=== PATIENT | female | born 1985 | race Caucasian/White ===

== ENCOUNTER 2018-09-01 06:58 | Observation (INO) | payer SELFPAY ==
[2018-09-01] MEDS ORDERED: MORPHINE 4 MG/ML SYR ONE (07:24)
[2018-09-01] MEDS ORDERED: ONDANSETRON 4 MG/2 ML VIAL ONE (07:25)
[2018-09-01] MEDS ORDERED: NA CHLORIDE 0.9% 1,000 ML ONE ×2 (07:25→08:26)
[2018-09-01 07:50] LABS: Absolute Lymphocytes (CBC) 0.8 K/uL (0.7-4.9); Absolute Monocytes 0.6 K/uL (0.1-1.3); Absolute Neutrophil 6.4 K/uL (1.8-8.0); Basophils % 0.6 % (0-1.3); Eosinophils % 2.3 % (0-4.4); Hematocrit 44.5 % (36.0-45.0); Lymphocytes % 10.5 % (15.3-44.8); MPV 8.4 fL (7.6-11.3); Monocytes % 7.2 % (3.3-12.3); RBC Red Blood Cell Count 4.86 M/uL (3.86-4.86)
[2018-09-01 08:00] LABS: Bilirubin Direct 0.2 mg/dL (0-0.2); Bilirubin Total 0.5 mg/dL (0.2-1.0); Potassium 4.2 mmol/L (3.5-5.1); Protein, Total 7.6 g/dL (6.4-8.2)
[2018-09-01 08:01] LABS: Albumin 3.9 g/dL (3.4-5.0)
--- NOTE | 2018-09-01 09:09 | RAD REPORT ---
EXAM DESCRIPTION: CT - Abdomen Pelvis W Contrast - 09/01/2018 8:27 am CLINICAL HISTORY: Abdominal pain, nausea, vomiting and diarrhea, history of prior bowel obstruction and hernia repair COMPARISON: CT imaging September 2011 TECHNIQUE: Biphasic, helical CT imaging of the abdomen and pelvis was performed following 100 ml non -ionic IV contrast. Oral contrast was given. All CT scans are performed using dose optimization technique as appropriate and may include automated exposure control or mA/KV adjustment according to patient size. FINDINGS: No suspicious findings in the lung bases. The liver, spleen, and pancreas show no suspicious findings. Gallbladder and biliary tree are also wi thout suspicious finding. Symmetric renal function is seen with no hydronephrosis or suspicious renal mass. No pyelonephritis o r acute parenchymal process. Contracted urinary bladder shows no suspicious findings. No suspicious o varian finding. A 3.7 centimeter fundal mass has enlarged since 2011. This is most likely an incident al fibroid. No adrenal abnormalities. No gastric dilatation or wall thickening. Proximal small bowel shows no dilatation. Proximal jejunum calderon are mildly prominent. In the mid small bowel spanning distal jejunum to proximal ileum there ar e multiple clustered small bowel loops. Distal to the dilatation the ileum is decompressed. Air and s tool are present in the right-side of the colon. The clustered or matted mid abdominal small bowel lo ops have fecalized bowel content indicating stasis. No free air or pneumatosis. An obstructing mass i s not identified. Patient has hernia mesh along the deep margin of the anterior abdominal wall spanning a fat only umbi lical hernia. No new abdominal wall hernia defect. No free air, free fluid or inflammatory stranding . No mass or bulky lymphadenopathy. No suspicious bony findings. IMPRESSION: Multiple dilated small bowel loops matted or clustered in the anterior mid abdomen dionicio ing distal jejunum to proximal ileum. These have fecalized bowel content and fluid. No obstructing ma ss at the distal end of the dilated small bowel loops. Baseline bowel pattern is not known for this patient. Given the acute symptoms, patient could have ne w bowel obstruction from adhesion or internal hernia process. No free air or surgically emergent finding. A 3.7 centimeter uterine fundal mass has enlarged since 2011. Enlarging fibroid is the favored diagno sis.
[2018-09-01] MEDS ORDERED: KETOROLAC 30 MG/ML INJ ONE (09:17)
--- NOTE | 2018-09-01 09:58 | EDPHYS ---
Physician Documentation [facility] Name: Gali Wetzel Age: 33 yrs Sex: Female : 1985 Arrival Date: 09/01/2018 Time: 07:00 Bed 20 Private MD: ED Physician Gael Olson HPI: 09/01 07:28 This 33 yrs old Female presents to ER via Ambulatory with complaints of kb Abdominal Pain, Vomiting/Diarrhea. 07:28 The patient presents with abdominal pain in the upper abdomen. Onset: The kb symptoms/episode began/occurred last night. The symptoms do not radiate. Associated signs and symptoms: Pertinent positives: nausea, vomiting, and diarrhea, Pertinent negatives: anorexia, blood in stools, chest pain, constipation, dysuria, fever, headache, hematuria, palpitations, shortness of breath, vaginal discharge, vomiting blood. The symptoms are described as constant. Modifying factors: The symptoms are alleviated by nothing, the symptoms are aggravated by nothing. Severity of pain: At its worst the pain was moderate in the emergency department the pain is unchanged. The patient has experienced a previous episode, approximately 5 years ago. The patient has not recently seen a physician. Pt reports abd pain, n/v/d that started after dinner last night. Reports the pain is the same as when she had a bowel obstruction 5 years ago. . 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 - Social history:: Smoking status: Patient/guardian denies using tobacco. - Ebola Screening: : No symptoms or risks identified at this time. ROS: 07:28 Constitutional: Negative for fever, chills, and weight loss, ENT: Negative for injury, kb pain, and discharge, Neck: Negative for injury, pain, and swelling, Cardiovascular: Negative for chest pain, palpitations, and edema, Respiratory: Negative for shortness of breath, cough, wheezing, and pleuritic chest pain, : Negative for injury, bleeding, discharge, and swelling, MS/Extremity: Negative for injury and deformity, Skin: Negative for injury, rash, and discoloration, Neuro: Negative for headache, weakness, numbness, tingling, and seizure. 07:28 Abdomen/GI: Positive for abdominal pain, nausea, vomiting, and diarrhea, Negative for constipation, abdominal cramps, abdominal distension, anorexia. Exam: 07:28 Constitutional: This is a well developed, well nourished patient who is awake, alert, kb and in no acute distress. Head/Face: Normocephalic, atraumatic. ENT: Nares patent. No nasal discharge, no septal abnormalities noted. Tympanic membranes are normal and external auditory canals are clear. Oropharynx with no redness, swelling, or masses, exudates, or evidence of obstruction, uvula midline. Mucous membranes moist. Neck: Trachea midline, no thyromegaly or masses palpated, and no cervical lymphadenopathy. Supple, full range of motion without nuchal rigidity, or vertebral point tenderness. No Meningismus. Chest/axilla: Normal chest wall appearance and motion. Nontender with no deformity. No lesions are appreciated. Cardiovascular: Regular rate and rhythm with a normal S1 and S2. No gallops, murmurs, or rubs. Normal PMI, no JVD. No pulse deficits. Respiratory: Lungs have equal breath sounds bilaterally, clear to auscultation and percussion. No rales, rhonchi or wheezes noted. No increased work of breathing, no retractions or nasal flaring. Skin: Warm, dry with normal turgor. Normal color with no rashes, no lesions, and no evidence of cellulitis. MS/ Extremity: Pulses equal, no cyanosis. Neurovascular intact. Full, normal range of motion. Neuro: Awake and alert, GCS 15, oriented to person, place, time, and situation. Cranial nerves II-XII grossly intact. Motor strength 5/5 in all extremities. Sensory grossly intact. Cerebellar exam normal. Normal gait. 07:28 Abdomen/GI: Inspection: abdomen appears normal, Bowel sounds: normal, in all quadrants, Palpation: soft, in all quadrants, mild abdominal tenderness, in all quadrants. Vital Signs: 07:08 BP 106 / 74; Pulse 86; Resp 16; Temp 97.9(O); Pulse Ox 100% on R/A; Weight 95.25 kg; hb Height 5 ft. 4 in. (162.56 cm); Pain 5/10; 08:00 BP 98 / 64; Pulse 58; Resp 18; Pulse Ox 99% on R/A; Pain 3/10; em 09:00 BP 100 / 53; Pulse 54; Resp 16; Pulse Ox 100% on R/A; Pain 6/10; em 09:50 BP 105 / 55; Pulse 72; Resp 18; Pulse Ox 99% on R/A; Pain 0/10; em 07:08 Body Mass Index 36.05 (95.25 kg, 162.56 cm) hb MDM: 07:04 Patient medically screened. kb 07:33 Data reviewed: vital signs, nurses notes. Data interpreted: Pulse oximetry: on room air kb is 100 %. Interpretation: normal. 09:32 Counseling: I had a detailed discussion with the patient and/or guardian regarding: the kb historical points, exam findings, and any diagnostic results supporting the discharge/admit diagnosis, lab results, radiology results, the need for further work-up and treatment in the hospital. 09:39 Physician consultation: Eber Adams DO was contacted at 09:39, regarding admission, kb to the medical/surgical unit. patient's condition, and will see patient in ED, shortly. 09/01 07:10 Order name: Basic Metabolic Panel; Complete Time: 08:01 kb 09/01 07:10 Order name: CBC with Diff; Complete Time: 07:56 kb 09/01 07:10 Order name: Hepatic Function; Complete Time: 08:01 kb 09/01 07:10 Order name: Lipase; Complete Time: 08:01 kb 09/01 08:18 Order name: Urine Dipstick--Ancillary (enter results); Complete Time: 11:57 eb 09/01 08:18 Order name: Urine --Ancillary (enter results); Complete Time: 11:57 eb 09/01 07:10 Order name: IV Saline Lock; Complete Time: 07:28 kb 09/01 07:10 Order name: CT Abd/Pelvis - W/Contrast; Complete Time: 09:10 kb 09/01 07:10 Order name: Labs collected and sent; Complete Time: 07:28 kb 09/01 07:10 Order name: Urine Dipstick-Ancillary (obtain specimen); Complete Time: 08:17 kb Administered Medications: 07:20 Drug: NS 0.9% 1000 ml Route: IV; Rate: 1000 ml; Site: right antecubital; em 08:18 Follow up: IV Status: Completed infusion; IV Intake: 1000ml em 07:20 Drug: Zofran 4 mg Route: IVP; Site: right antecubital; hb 08:17 Follow up: Response: No adverse reaction; Nausea is decreased em 07:22 Drug: morphine 4 mg Route: IVP; Site: right antecubital; hb 08:18 Follow up: Response: No adverse reaction; Pain is decreased em 08:33 Drug: NS 0.9% 1000 ml Route: IV; Rate: 1000 ml; Site: right antecubital; em 11:50 Follow up: IV Status: Completed infusion; IV Intake: 1000ml em 09:09 Drug: TORadol 30 mg Route: IVP; Site: right antecubital; hb 09:50 Follow up: Response: No adverse reaction; Pain is decreased em Disposition: 15:15 Co-signature as Attending Physician, Gael Olson MD. rn Disposition: 09/01/18 09:57 Hospitalization ordered by Eber Adams for Observation. Preliminary diagnosis is Generalized abdominal pain. - Bed requested for Telemetry/MedSurg (observation). - Status is Observation. em - Condition is Stable. - Problem is new. - Symptoms are unchanged. UTI on Admission? No Signatures: Dispatcher [employer] EDMT Jagruti Handley, MEDICAL STAFFING COORDINATOR-C MEDICAL STAFFING COORDINATOR-Ckb Chaitanya Acuña, LEAD PRESSMAN LEAD PRESSMAN em Gael Olson MD MD rn Baxter, Heather, RN RN hb Botello, Elizabeth eb Corrections: (The following items were deleted from the chart) 09:45 09:18 Abdomen Pelvis W Con+CT.RAD.BRZ ordered. EDMT EDMS 10:24 09:38 NG Tube ordered. kb em 11:40 09:57 Hospitalization Ordered by Eber Adams DO for Observation. Preliminary eb diagnosis is Generalized abdominal pain. Bed requested for Telemetry/MedSurg (observation). Status is Observation. Condition is Stable. Problem is new. Symptoms are unchanged. UTI on Admission? No. kb 12:20 11:40 09/01/2018 09:57 Hospitalization Ordered by Eber Adams DO for Observation. em Preliminary diagnosis is Generalized abdominal pain. Bed requested for Telemetry/MedSurg (observation). Status is Observation. Condition is Stable. Problem is new. Symptoms are unchanged. UTI on Admission? No. eb
--- NOTE | 2018-09-01 09:58 | ER ---
Nurse's Notes [facility] Name: Gali Wetzel Age: 33 yrs Sex: Female : 1985 Arrival Date: 09/01/2018 Time: 07:00 Bed 20 Private MD: Diagnosis: Generalized abdominal pain Presentation: 09/01 07:09 Presenting complaint: N/V/D x 2 days, abdominal pain after eating dinner last night. hb Transition of care: patient was not received from another setting of care. Onset of symptoms was August 30, 2018. Risk Assessment: Do you want to hurt yourself or someone else? Patient reports no desire to harm self or others. Initial Sepsis Screen: Does the patient meet any 2 criteria? No. Patient's initial sepsis screen is negative. Does the patient have a suspected source of infection? No. Patient's initial sepsis screen is negative. Care prior to arrival: None. 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 - Social history:: Smoking status: Patient/guardian denies using tobacco. - Ebola Screening: : No symptoms or risks identified at this time. Screenin:15 Abuse screen: Denies threats or abuse. Denies injuries from another. Nutritional hb screening: No deficits noted. Tuberculosis screening: No symptoms or risk factors identified. Fall Risk None identified. Assessment: 07:12 General: Appears in no apparent distress. uncomfortable, Behavior is calm, cooperative, em Denies fever. Pain: Complains of pain in right upper quadrant and left upper quadrant Pain currently is 7 out of 10 on a pain scale. Pain began 1 day ago. Aggravated by eating. Neuro: Level of Consciousness is awake, alert, obeys commands, Oriented to person, place, time, situation. Cardiovascular: Capillary refill < 3 seconds Patient's skin is warm and dry. Respiratory: Airway is patent Respiratory effort is even, unlabored, Respiratory pattern is regular, symmetrical. GI: Abdomen is flat, Bowel sounds present X 4 quads. Abd is soft X 4 quads Abdomen is tender to palpation in right upper quadrant and left upper quadrant Reports upper abdominal pain, diarrhea, nausea, vomiting. : Denies burning with urination, cramping. Derm: Skin is intact, is healthy with good turgor, Skin is pink, warm \T\ dry. Musculoskeletal: Range of motion: intact in all extremities. 07:20 Reassessment: I agree with previous assessment. hb 08:00 Reassessment: Patient appears in no apparent distress at this time. Patient and/or em family updated on plan of care and expected duration. Pain level reassessed. Patient is alert, oriented x 3, equal unlabored respirations, skin warm/dry/pink. rates pain 3/10. 08:32 Reassessment: Patient appears in no apparent distress at this time. returned from CT, em placed on monitor and started 2nd NS L. 09:00 Reassessment: Patient appears in no apparent distress at this time. reports pain is em coming back, rates 6/10, provider at bedside, new medication orders received. 10:01 Reassessment: Patient appears in no apparent distress at this time. denies pain at this em time, Dr. Adams at bedside. 10:15 Reassessment: NG tube canceled per Dr. Adams until further notice. em 11:10 Reassessment: Patient appears in no apparent distress at this time. Patient and/or em family updated on plan of care and expected duration. Pain level reassessed. Patient is alert, oriented x 3, equal unlabored respirations, skin warm/dry/pink. pending room assignment Patient denies pain at this time. Patient states feeling better. 12:17 Reassessment: Patient appears in no apparent distress at this time. Patient and/or em family updated on plan of care and expected duration. Pain level reassessed. Patient is alert, oriented x 3, equal unlabored respirations, skin warm/dry/pink. Vital Signs: 07:08 BP 106 / 74; Pulse 86; Resp 16; Temp 97.9(O); Pulse Ox 100% on R/A; Weight 95.25 kg; hb Height 5 ft. 4 in. (162.56 cm); Pain 5/10; 08:00 BP 98 / 64; Pulse 58; Resp 18; Pulse Ox 99% on R/A; Pain 3/10; em 09:00 BP 100 / 53; Pulse 54; Resp 16; Pulse Ox 100% on R/A; Pain 6/10; em 09:50 BP 105 / 55; Pulse 72; Resp 18; Pulse Ox 99% on R/A; Pain 0/10; em 07:08 Body Mass Index 36.05 (95.25 kg, 162.56 cm) hb ED Course: 07:00 Patient arrived in ED. as 07:01 Jagruti Handley FNP-C is PHCP. kb 07:01 Gael Olson MD is Attending Physician. kb 07:12 Patient has correct armband on for positive identification. Placed in gown. Bed in low em position. Call light in reach. Side rails up X2. Pulse ox on. NIBP on. 07:13 Chaitanya Acuña LVN is Primary Nurse. em 07:13 Triage completed. hb 07:13 Arm band placed on. hb 07:20 Initial lab(s) drawn, by me, sent to lab. Inserted saline lock: 20 gauge in right em antecubital area, using aseptic technique. Blood collected. 08:24 CT completed. Patient moved to CT via wheelchair. Patient moved back from CT. bq 08:27 CT Abd/Pelvis - W/Contrast In Process Unspecified. EDMS 09:56 Eber Adams DO is Hospitalizing Provider. kb 11:50 No provider procedures requiring assistance completed. Patient admitted, IV remains in em place. Administered Medications: 07:20 Drug: NS 0.9% 1000 ml Route: IV; Rate: 1000 ml; Site: right antecubital; em 08:18 Follow up: IV Status: Completed infusion; IV Intake: 1000ml em 07:20 Drug: Zofran 4 mg Route: IVP; Site: right antecubital; hb 08:17 Follow up: Response: No adverse reaction; Nausea is decreased em 07:22 Drug: morphine 4 mg Route: IVP; Site: right antecubital; hb 08:18 Follow up: Response: No adverse reaction; Pain is decreased em 08:33 Drug: NS 0.9% 1000 ml Route: IV; Rate: 1000 ml; Site: right antecubital; em 11:50 Follow up: IV Status: Completed infusion; IV Intake: 1000ml em 09:09 Drug: TORadol 30 mg Route: IVP; Site: right antecubital; hb 09:50 Follow up: Response: No adverse reaction; Pain is decreased em Intake: 08:18 IV: 1000ml; Total: 1000ml. em 11:50 IV: 1000ml; Total: 2000ml. em Outcome: 09:57 Decision to Hospitalize by Provider. kb 12:18 Admitted to Med/surg accompanied by tech, via wheelchair, room 213, with chart, Report em called to CHANDNI Smith 12:18 Condition: good 12:18 Instructed on the need for admit, Demonstrated understanding of instructions. 12:20 Patient left the ED. em Signatures: Dispatcher [employer] EDJagruti Sy, DEVELOPER PROVER MECHANICAL-C DEVELOPER PROVER MECHANICAL-Renu Mcguire Edgar, TONNAGE COMPILATION CLERK TONNAGE COMPILATION CLERK em Amy Trevino Heather, RN RN hb
--- NOTE | 2018-09-01 10:18 | P.HP ---
Certification for Inpatient Patient admitted to: Observation With expected LOS: <2 Midnights Patient will require the following post-hospital care: None Practitioner: I am a practitioner with admitting privileges, knowledge of patient current condition, hospital course, and medical plan of care. Services: Services provided to patient in accordance with Admission requirements found in Title 42 Section 412.3 of the Code of Federal Regulations Patient History Date of Service: 09/01/18 Primary Care Provider: Dr. Meyer; Surgery-Dr. Davis Reason for admission: Abdominal pain, nausea vomiting History of Present Illness: 33-year-old female presented to emergency room with kai umbilical abdominal pain, nausea and vomiting. Patient reports kai umbilical abdominal pain, nausea and vomiting starting last night. Pain has worsened. Patient with history of partial small bowel obstruction about 4 years ago. This required hospitalization. Patient also with history of hernia repair in the distant past along with a D/C. Pain was severe. Patient had poor oral intake. Patient reports eating some broccoli and foot he is over the last couple of days. In the ER patient was evaluated. Patient given pain medication and IV medication for nausea. White count 8.0, hemoglobin 14,creatinine 0.99 with a GFR 64. Lipase unremarkable. CT scan with oral contrast showed multiple dilated small bowel loops in the anterior mid abdomen near distal jejunum to proximal ileum. No obstructing mass at the distal and of the dilated loops. No free air or surgically emergent finding. 3.7 cm uterine fundal mass has enlarged since 2011. Likely an large fibroid. Patient stable at this time. Patient admitted for further evaluation and treatment. When I saw the patient the ER, she appeared comfortable. Abdomen non distended. Patient with history of depression, tobacco use and chronic allergies. Allergies Penicillins Allergy (Unknown, Verified 09/11/11 06:11) Hives Home medications list reviewed: Yes Home Medications: Phenergan 12.5 PO Q4HP PRN 09/11/11 Hydrocodone 5/325 1 mg PO Q4HP PRN 09/12/11 Hydroxycut 1 PO TID 09/12/11 - Past Medical/Surgical History Diabetic: No -: Depression -: Chronic sinusitis -: Tobacco use -: Hernia repair -: D/C Psychosocial/ Personal History: Patient is . She has 3 children. She works at the [employer]. - Family History Family History: Reviewed- Non-Contributory - Social History Smoking Status: Light Tobacco smoker (1-9 cigarettes/day) Counseled patient to stop smoking for: less than 10 minutes Smoking therapy provided: Yes Patient receptive to therapy: Yes Alcohol use: Yes CD- Drugs: No Caffeine use: Yes Place of Residence: Home Review of Systems General: As per HPI Eyes: Unremarkable ENT: Unremarkable Respiratory: Unremarkable Cardiovascular: Unremarkable Gastrointestinal: Nausea, Vomiting, Abdominal Pain, As per HPI Genitourinary: Unremarkable Musculoskeletal: Unremarkable Integumentary: Unremarkable Neurological: Unremarkable Lymphatics: Unremarkable Physical Examination - Physical Exam General: Alert, In no apparent distress, Oriented x3, Cooperative HEENT: Atraumatic, Normocephalic, PERRLA, Other (Dry mucous membranes) Neck: Supple, No Thyromegaly Respiratory: Clear to auscultation bilaterally, Normal air movement Cardiovascular: Normal pulses, Regular rate/rhythm Gastrointestinal: Soft and benign, Non-distended, No rebound, No guarding, Tenderness (Minimal tenderness to the epigastric and periumbilical region. Slightly hypoactive bowel sounds) Musculoskeletal: No erythema, No tenderness, No warmth Integumentary: No tenderness/swelling, No erythema, No warmth, No cyanosis Neurological: Normal speech, Normal strength at 5/5 x4 extr, Normal tone, Normal affect - Studies Laboratory Data (last 24 hrs) 09/01/18 07:20: WBC 8.0, Hgb 14.5, Hct 44.5, Plt Count 339 09/01/18 07:20: Sodium 140, Potassium 4.2, BUN 13, Creatinine 0.99, Glucose 108 H, Total Bilirubin 0.5, AST 14 L, ALT 14, Alkaline Phosphatase 44 L, Lipase 68 L Assessment and Plan - Plan Impression: Periumbilical abdominal pain with nausea and vomiting suspect partial small- bowel obstruction versus enteritis with history of small-bowel obstruction and hernia repair Depression Chronic sinusitis Obesity Tobacco abuse Plan: Periumbilical abdominal pain with nausea and vomiting suspect partial small- bowel obstruction versus enteritis with history of small-bowel obstruction and hernia repair: Patient will be admitted and observed. Will continue with IV fluids and medication for pain and nausea. Will discuss case further with surgery who has seen the patient in the past. No need for NG tube at this time. Will keep the patient NPO. Await further recommendations from surgery. Hopefully this will resolve on its own. If worse patient may require surgical intervention. Depression: Will hold medication at this time. Chronic sinusitis: Hold medication at this time. Obesity: Will address lifestyle modification education. Tobacco abuse: Will address tobacco cessation. Discharge Plan: Home Plan to discharge in: 48 Hours - Advance Directives Does patient have a Living Will: No Does patient have a Durable POA for Healthcare: No - Code Status/Comfort Care Code Status Assessed: Yes (Patient full code.) Time Spent Managing Pts Care (In Minutes): 55
[2018-09-01 11:55] LABS: Urine Blood TRACE (NEG); Urine Glucose NEGATIVE (NEG); Urine Protein TRACE (NEG)
[2018-09-01] MEDS ORDERED: ACETAMINOPHEN 650MG/RECT SUPP PR PRN (12:44)
[2018-09-01] MEDS ORDERED: ACETAMINOPHEN 500 MG TAB PO PRN (12:44)
[2018-09-01] MEDS: NA CHLORIDE 0.9% 1,000 ML IV SCH ×3 (14:39→22:44)
[2018-09-01] MEDS: FAMOTIDINE 20 MG/2 ML VIAL IV SCH ×2 (14:42→20:40)
[2018-09-01] MEDS: ONDANSETRON 4 MG/2 ML VIAL IV PRN ×2 (14:43→20:39)
[2018-09-01] MEDS: MORPHINE 4 MG/ML SYR IV PRN ×2 (14:43→20:39)
[2018-09-01] MEDS ORDERED: MINERAL OIL 30 ML UCUP PO ONE (18:23)
--- NOTE | 2018-09-01 18:23 | P.CNS ---
Date of Consult: 09/01/18 PC: This 33-year-old female presents to the emergency room with severe abdominal pain for diagnosis and treatment. HPC: Patient had been cooking at home this week. Has had steak and broccoli, Fajita meet , and a stir joyce. Yesterday she noted she was having increased abdominal pain. She describes it as hard like labor pain. In intensified and so she could no longer stand it and she came to the emergency room. PMH: Negative, (has had admissions for partial small-bowel obstruction in the past) PSHx: Previous hernia repair SOC: Allergic to penicillin SYS REVIEW: States he has otherwise been healthy. She would had started a new diet in an effort to lose weight during the new year. It is supposedly high- protein high-fiber. protein high fiber. O/E awake alert comfortable at the moment HEENT: Within normal limits Chest: Chest movement equal bilaterally ABD: Abdomen soft nontender no guarding or rebound LOCO: Intact DATA: CT scan was reviewed IMPRESSION: Partial small-bowel obstruction PLAN: I suspect that this young lady, due to her over indulgence in the high- fiber department, had a partial small-bowel obstruction. This can be seen on the CT scan as the l fecalized contents of the small bowel. At the current time I would imagine that he has broken up as the patient is extremely comfortable in the bed. I will order some mineral oil for her tonight, and imagine that by the morning she should be much improved if not stable enough for discharge. I have discussed this with her. She understands
[2018-09-02 06:12] LABS: Absolute Lymphocytes (CBC) 1.3 K/uL (0.7-4.9); Absolute Monocytes 0.5 K/uL (0.1-1.3); Absolute Neutrophil 4.9 K/uL (1.8-8.0); Basophils % 0.4 % (0-1.3); Hematocrit 37.5 % (36.0-45.0); Lymphocytes % 19.2 % (15.3-44.8); MPV 8.7 fL (7.6-11.3); Monocytes % 6.7 % (3.3-12.3); RBC Red Blood Cell Count 4.08 M/uL (3.86-4.86)
[2018-09-02 06:23] LABS: Potassium 3.8 mmol/L (3.5-5.1)
[2018-09-02 06:42] VITALS: BMI 37.0
[2018-09-02] MEDS ORDERED: D50W 25 GM/50 ML SYRINGE IV ONE (07:35)
[2018-09-02] MEDS: D5 0.45 NS 1,000 ML IV SCH ×2 (07:44→17:36)
[2018-09-02] MEDS ORDERED: KCL 20 MEQ/100 mL IVPB 20 MEQ/100 ML BAG IV SCH (09:00)
[2018-09-02] MEDS: ENOXAPARIN 40 MG/0.4 ML SQ SCH (09:18)
[2018-09-02] MEDS: FAMOTIDINE 20 MG/2 ML VIAL IV SCH ×2 (09:18→20:16)
--- NOTE | 2018-09-02 12:47 | RAD REPORT ---
EXAM DESCRIPTION: RAD - Abdomen 1 View (KUB) - 09/02/2018 12:19 pm CLINICAL HISTORY: Abdomen pain. FINDINGS: A ventral mesh overlies the abdomen. It is difficult to assess the small bowel dilatation seen on the recent CAT scan as the small bowel i s mostly fluid-filled containing little air. Air is visualized within normal caliber colon.
--- NOTE | 2018-09-02 13:01 | P.PN ---
Subjective Date of Service: 09/02/18 Primary Care Provider: Dr. Meyer; Surgery-Dr. Davis Chief Complaint: Abdominal pain, nausea vomiting Subjective: Other (Patient has not had a bowel movement. Some passage of gas is noted. Pain slightly improved.) Physical Examination - Vital Signs Temperature: 98.4 F Blood Pressure: 107/56 Pulse: 59 Respirations: 18 Pulse Ox (%): 98 - Physical Exam General: Alert, In no apparent distress, Oriented x3, Cooperative HEENT: Atraumatic Neck: Supple Respiratory: Clear to auscultation bilaterally, Normal air movement Cardiovascular: Normal pulses, Regular rate/rhythm Gastrointestinal: Normal bowel sounds, Soft and benign, Non-distended, Tenderness (Less pain to the periumbilical region) Neurological: Normal speech, Normal strength at 5/5 x4 extr, Normal tone, Normal affect - Studies Medications List Reviewed: Yes Assessment & Plan Discharge Plan: Home Plan to discharge in: 48 Hours Physician Review Additional Text: Impression: Periumbilical abdominal pain with nausea and vomiting suspect partial small- bowel obstruction versus enteritis with history of small-bowel obstruction and hernia repair Depression Chronic sinusitis Obesity, BMI 37 Tobacco abuse 3.7 cm uterine fibroid Plan: Periumbilical abdominal pain with nausea and vomiting suspect partial small- bowel obstruction versus enteritis with history of small-bowel obstruction and hernia repair: Patient with slight improvement. Continue IV fluids. Encourage ambulation. Will have surgery assess the patient today. If improved patient will likely have advanced of her diet. If this persists patient may require surgical intervention. Will discuss with surgery. I will turn the service over to Dr. Watson tomorrow. I will go over the plan of care with her. Depression: Will hold medication at this time. Chronic sinusitis: Hold medication at this time. Obesity, BMI 37: Will address lifestyle modification education. Tobacco abuse: Will address tobacco cessation. 3.7 cm Uterine fibroid: CT scan revealed 3.7 cm uterine fibroid. This has enlarged since 2012. This can be further addressed as an outpatient with gynecology. Time Spent Managing Pts Care (In Minutes): 55
[2018-09-02] MEDS: MORPHINE 4 MG/ML SYR IV PRN (13:05)
--- NOTE | 2018-09-02 19:27 | P.PN ---
Date of Service: 09/02/18 S: Patient of specific complaints, states she feels better today. Has been started on liquids and appears to be tolerating it. O: Abdomen soft, nontender, no guarding or rebound A: Partial small-bowel obstruction/ileus appears to have resolve P: I will give her some magnesium citrate tonight. Anticipate discharge in a.m..
[2018-09-02] MEDS ORDERED: MAGNESIUM CITRATE 300 ML BOT PO SCH (20:00)
[2018-09-03] MEDS: D5 0.45 NS 1,000 ML IV SCH (03:30)
[2018-09-03 07:04] LABS: Magnesium 2.1 mg/dL (1.8-2.4); Potassium 3.9 mmol/L (3.5-5.1)
[2018-09-03 07:13] LABS: Absolute Lymphocytes (CBC) 1.1 K/uL (0.7-4.9); Absolute Monocytes 0.5 K/uL (0.1-1.3); Absolute Neutrophil 2.6 K/uL (1.8-8.0); Basophils % 0.5 % (0-1.3); Eosinophils % 4.7 % (0-4.4); Lymphocytes % 25.4 % (15.3-44.8); MPV 8.6 fL (7.6-11.3); Monocytes % 11.3 % (3.3-12.3); RBC Red Blood Cell Count 3.92 M/uL (3.86-4.86)
[2018-09-03] MEDS ORDERED: POTASSIUM CL SA 10 MEQ TAB PO ONE (07:23)
[2018-09-03] MEDS ORDERED: MONTELUKAST 10 MG TAB PO SCH (09:00)
[2018-09-03] MEDS ORDERED: BUSPIRONE HCL 5 MG TABLET PO SCH (09:00)
[2018-09-03] MEDS ORDERED: MONTELUKAST 5 MG PO SCH (09:00)
[2018-09-03] MEDS: FAMOTIDINE 20 MG/2 ML VIAL IV SCH (09:56)
[2018-09-03] MEDS: ENOXAPARIN 40 MG/0.4 ML SQ SCH (09:57)
[2018-09-03 11:44] VITALS: O2SAT 99
[2018-09-03 12:34] VITALS: BP 107/67; TEMP 97.7
--- NOTE | 2018-09-03 13:07 | P.PN ---
Date of Service: 09/03/18 S: Patient is doing well pain appears to have resolved. Tolerating a diet. Having regular bowel movements. O: Abdomen is soft nontender no guarding or rebound A: Her GI issue appears to have resolved P . She has been instructed on follow-up as needed.
--- NOTE | 2018-09-03 17:51 | P.DS ---
Admission Date: 09/01/18 Discharge Date: 09/03/18 Primary Care Provider: Dr. Meyer; Surgery-Dr. Davis Disposition: ROUTINE DISCHARGE Discharge Condition: GOOD Reason for Admission: Abdominal pain, nausea vomiting Consultations: General Surgery - Problems (1) Depression Onset Date: 09/03/18 Status: Acute (2) Nausea & vomiting Onset Date: 09/03/18 Status: Acute (3) Periumbilical abdominal pain Onset Date: 09/03/18 Status: Acute Brief History of Present Illness: 3-year-old female presented to emergency room with kai umbilical abdominal pain, nausea and vomiting. Patient reports kai umbilical abdominal pain, nausea and vomiting starting last night. Pain has worsened. Patient with history of partial small bowel obstruction about 4 years ago. This required hospitalization. Patient also with history of hernia repair in the distant past along with a D/C. Pain was severe. Patient had poor oral intake. Patient reports eating some broccoli and foot he is over the last couple of days. In the ER patient was evaluated. Patient given pain medication and IV medication for nausea. White count 8.0, hemoglobin 14,creatinine 0.99 with a GFR 64. Lipase unremarkable. CT scan with oral contrast showed multiple dilated small bowel loops in the anterior mid abdomen near distal jejunum to proximal ileum. No obstructing mass at the distal and of the dilated loops. No free air or surgically emergent finding. 3.7 cm uterine fundal mass has enlarged since 2011. Likely an large fibroid. Patient stable at this time. Patient admitted for further evaluation and treatment. When I saw the patient the ER, she appeared comfortable. Abdomen non distended. Patient with history of depression, tobacco use and chronic allergies Hospital Course: Overall during the hospital stay patient remained stable Patient was initially admitted to the hospital for abdominal pain nausea vomiting. Had abdominal CT which was consistent with stool retention. General surgery was consulted and recommended the patient get back sutured. Patient had a huge bowel movement and had improvement in her symptoms. Patient's abdominal pain nausea vomiting did resolve completely. Patient then was discharged home under stable condition was asked to follow up with primary care provider in about 1-2 days post discharge. Vital Signs/Physical Exam: Temp Pulse Resp BP Pulse Ox 97.7 F 56 16 107/67 99 09/03/18 12:00 09/03/18 12:00 09/03/18 12:00 09/03/18 12:00 09/03/18 12:00 Laboratory Data at Discharge: WBC 4.5 K/uL (4.3-10.9) D 09/03/18 06:14 Hgb 11.9 g/dL (12.0-15.0) L 09/03/18 06:14 Hct 36.0 % (36.0-45.0) 09/03/18 06:14 Plt Count 241 K/uL (152-406) 09/03/18 06:14 Sodium 143 mmol/L (136-145) 09/03/18 06:14 Potassium 3.9 mmol/L (3.5-5.1) 09/03/18 06:14 BUN 7 mg/dL (7-18) 09/03/18 06:14 Creatinine 0.86 mg/dL (0.55-1.3) 09/03/18 06:14 Glucose 97 mg/dL (74-106) 09/03/18 06:14 Magnesium 2.1 mg/dL (1.8-2.4) 09/03/18 06:14 Total Bilirubin 0.5 mg/dL (0.2-1.0) 09/01/18 07:20 AST 14 U/L (15-37) L 09/01/18 07:20 ALT 14 U/L (12-78) 09/01/18 07:20 Alkaline Phosphatase 44 U/L (45-117) L 09/01/18 07:20 Lipase 68 U/L (73-393) L 09/01/18 07:20 Home Medications: Buspirone HCl 5 mg PO DAILY 09/01/18 Montelukast [Singulair*] 5 mg PO DAILY 09/01/18 Diet: Regular Activity: Ad mya Followup: David Nicholas MD [ACTIVE - CAN ADMIT] - (Call to schedule an appointment) Norm Davis MD [ACTIVE - CAN ADMIT] - (Call to schedule an appointment)
== END 2018-09-03 13:45 | disposition home or self-care (01) ==
LOC: ER 06:58 → ERHOLD 10:11 → 4TH 12:23
PROVIDERS: ADMIT Family Medicine; ATTEND Family Medicine
DX: R11.2 Nausea with vomiting, unspecified (principal); R10.9 Unspecified abdominal pain; F32.9 Major depressive disorder, single episode, unspecified; E66.9 Obesity, unspecified; Z68.37 Body mass index [BMI] 37.0-37.9, adult; D25.9 Leiomyoma of uterus, unspecified; Z88.0 Allergy status to penicillin; F17.210 Nicotine dependence, cigarettes, uncomplicated; J32.9 Chronic sinusitis, unspecified
CPT/HCPCS: 36415; 74018; 74177; 80048; 80076; 81003; 81025; 82962; 83690; 83735; 85025; 96361; 96374; 96375; 99285; G0378; J1650; J2405; J7030; Q9967

== ENCOUNTER 2019-01-16 13:52 | Emergency (ER) | payer BC ==
[2019-01-16] MEDS ORDERED: LIDOCAINE 1% MPF 5 ML VIAL ONE (14:40)
--- NOTE | 2019-01-16 15:03 | ER ---
Nurse's Notes [facility] Name: Gali Wetzel Age: 33 yrs Sex: Female : 1985 Arrival Date: 01/16/2019 Time: 13:55 Bed 19 Private MD: Diagnosis: Hand Laceration Presentation: 01/16 13:58 Presenting complaint: Patient states: i was washing dishes and i slashed my R thumb hj area with a glass; happened 20 mins ago;. Transition of care: patient was not received from another setting of care. Complicating Factors: There are no complicating factors for this patient. Onset of symptoms was January 16, 2019. Risk Assessment: Do you want to hurt yourself or someone else? Patient reports no desire to harm self or others. Initial Sepsis Screen: Does the patient meet any 2 criteria? No. Patient's initial sepsis screen is negative. Does the patient have a suspected source of infection? No. Patient's initial sepsis screen is negative. Care prior to arrival: None. 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 - Social history:: Smoking status: . - Ebola Screening: : Patient denies travel to an Ebola-affected area in the 21 days before illness onset. Screenin:32 Abuse screen: Denies threats or abuse. Nutritional screening: No deficits noted. tw2 Tuberculosis screening: No symptoms or risk factors identified. Fall Risk None identified. Assessment: 14:32 General: Appears in no apparent distress. obese, Behavior is calm, cooperative, tw2 appropriate for age. Pain:. 14:33 Pain: Complains of pain in dorsal aspect of proximal phalanx of right thumb and palmar tw2 aspect of proximal phalanx of right thumb. Neuro: Level of Consciousness is awake, alert, obeys commands, Oriented to person, place, time, situation. Cardiovascular: Patient's skin is warm and dry. Respiratory: Airway is patent Respiratory effort is even, unlabored, Respiratory pattern is regular, symmetrical. GI: No signs and/or symptoms were reported involving the gastrointestinal system. : No signs and/or symptoms were reported regarding the genitourinary system. Derm: No signs and/or symptoms reported regarding the dermatologic system. Musculoskeletal: Circulation, motion, and sensation intact. Range of motion: intact in all extremities. Injury Description: Laceration sustained to dorsal aspect of proximal phalanx of right thumb and palmar aspect of proximal phalanx of right thumb is clean, 0.5 to 2.5 cm long, not bleeding. 15:12 Reassessment: Patient appears in no apparent distress at this time. No changes from tw2 previously documented assessment. Patient and/or family updated on plan of care and expected duration. Pain level reassessed. Patient is alert, oriented x 3, equal unlabored respirations, skin warm/dry/pink. Vital Signs: 13:59 BP 118 / 72; Pulse 80; Resp 18; Temp 99.4; Pulse Ox 97% on R/A; Weight 97.52 kg; Height hj 5 ft. 4 in. (162.56 cm); Pain 7/10; 13:59 Body Mass Index 36.90 (97.52 kg, 162.56 cm) ED Course: 13:55 Patient arrived in ED. mr 13:58 Triage completed. hj 13:59 Arm band placed on left wrist. hj 14:01 [facility] 14:01 Can Gordon MD is Attending Physician. [facility] 14:08 Bed in low position. Call light in reach. Pulse ox on. NIBP on. tw2 14:23 Keri Islas, CHANDNI is Primary Nurse. tw2 15:12 No provider procedures requiring assistance completed. Patient did not have IV access tw2 during this emergency room visit. Administered Medications: 04:39 Drug: Lidocaine (1 %) 5 mg Route: Infiltration; tw2 Outcome: 15:02 Discharge ordered by . [facility] 15:12 Discharged to home ambulatory, with family. tw2 15:12 Condition: stable 15:12 Discharge instructions given to patient, family, Instructed on discharge instructions, follow up and referral plans. wound care, suture removal in 7 days, s/s infection Demonstrated understanding of instructions, follow-up care, wound care. 15:12 Patient left the ED. tw2 Signatures: Vish Grant PA PA jmm Rivera Dasha mr Yazan Garcia RN RN Keri Islas RN RN tw2
--- NOTE | 2019-01-16 15:03 | EDPHYS ---
Physician Documentation [facility] Name: Gali Wetzel Age: 33 yrs Sex: Female : 1985 Arrival Date: 01/16/2019 Time: 13:55 Bed 19 Private MD: ED Physician Can Gordon HPI: 01/16 14:09 This 33 yrs old Female presents to ER via Ambulatory with complaints of jmm Laceration To Hand. 14:09 Onset: The symptoms/episode began/occurred acutely, just prior to arrival. Associated jmm signs and symptoms: Pertinent negatives: dizziness, heavy bleeding, loss of consciousness, numbness distal to injury, suspected foreign body. Patient lacerated her right hand after a glass broke while washing it in the sink. Patient states she is UTD on tetanus immunizations. . 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 - Social history:: Smoking status: . - Ebola Screening: : Patient denies travel to an Ebola-affected area in the 21 days before illness onset. ROS: 14:36 Constitutional: Negative for fever, chills, and weight loss, Cardiovascular: Negative jmm for chest pain, palpitations, and edema, Respiratory: Negative for shortness of breath, cough, wheezing, and pleuritic chest pain. 14:36 MS/extremity: Positive for laceration. 14:36 Skin: Positive for laceration(s). 14:36 All other systems are negative. Exam: 14:36 Constitutional: This is a well developed, well nourished patient who is awake, alert, jmm and in no acute distress. Head/Face: atraumatic. Eyes: EOMI, no conjunctival erythema appreciated ENT: Moist Mucus Membranes Neck: Trachea midline, Supple Chest/axilla: Normal chest wall appearance and motion. Cardiovascular: Regular rate and rhythm. No edema appreciated Respiratory: Normal respirations, no respiratory distress appreciated Abdomen/GI: Non distended, soft Back: Normal ROM 14:36 Skin: partial avulsion noted to the base of the right thumb. 14:36 Neuro: Orientation: is normal, Mentation: is normal, Memory: is normal. 14:36 Psych: Behavior/mood is pleasant, cooperative. Vital Signs: 13:59 BP 118 / 72; Pulse 80; Resp 18; Temp 99.4; Pulse Ox 97% on R/A; Weight 97.52 kg; Height hj 5 ft. 4 in. (162.56 cm); Pain 7/10; 13:59 Body Mass Index 36.90 (97.52 kg, 162.56 cm) hj Laceration: 14:36 Wound Repair of 4cm ( 1.6in ) subcutaneous laceration to right hand. Distal jmm neuro/vascular/tendon intact. Anesthesia: Local anesthetic administered with 2 mls of 1% lidocaine. Wound prep: Simple cleansing with betadine by me. Skin closed with 8 5-0 Prolene using simple sutures and sterile technique. Dressed with non-adherent dressing. Patient tolerated well. MDM: 14:09 Patient medically screened. [facility] 15:00 Data reviewed: vital signs, nurses notes. Counseling: I had a detailed discussion with dariel the patient and/or guardian regarding: the historical points, exam findings, and any diagnostic results supporting the discharge/admit diagnosis, the need for outpatient follow up, to return to the emergency department if symptoms worsen or persist or if there are any questions or concerns that arise at home. ED course: Patient given wound infection return precautions. Patient understood and agrees with the plan of care. . 01/16 14:29 Order name: Dressing - Wound; Complete Time: 15:06 tw2 01/16 14:29 Order name: Gloves, Sterile; Complete Time: 14:30 tw2 01/16 14:29 Order name: Setup Suture Tray; Complete Time: 14:30 tw2 Administered Medications: 04:39 Drug: Lidocaine (1 %) 5 mg Route: Infiltration; tw2 Disposition: 18:59 Co-signature as Attending Physician, Can Gordon MD Available for consultation at [facility] all times. . Disposition: 01/16/19 15:02 Discharged to Home. Impression: Hand Laceration. - Condition is Stable. - Discharge Instructions: Laceration Care, Adult. - Medication Reconciliation Form, Thank You Letter, Antibiotic Education, Prescription Opioid Use, Work release form form. - Follow up: Private Physician; When: 1 week; Reason: Recheck today's complaints, Continuance of care, Staple/Suture removal, Re-evaluation by your physician. Signatures: Vish Grant PA PA jmm Joaquin, Henry, RN RN hj Keri Islas RN RN tw2 Can Gordon MD MD ps1 Corrections: (The following items were deleted from the chart) 15:12 15:02 01/16/2019 15:02 Discharged to Home. Impression: Hand Laceration. Condition is tw2 Stable. Forms are Work release form, Medication Reconciliation Form, Thank You Letter, Antibiotic Education, Prescription Opioid Use. Follow up: Private Physician; When: 1 week; Reason: Recheck today's complaints, Continuance of care, Staple/Suture removal, Re-evaluation by your physician. dariel
[2019-01-16 15:16] VITALS: BP 118/72; TEMP 99.4; O2SAT 97
== END 2019-01-16 15:12 | disposition home or self-care (01) ==
LOC: ER 13:52
PROC: 0JQJ0ZZ Repair Right Hand Subcutaneous Tissue and Fascia, Open Approach (ICD-10-PCS; principal; 2019-01-16)
DX: S61.411A Laceration without foreign body of right hand, initial encounter (principal); W25.XXXA Contact with sharp glass, initial encounter; Y93.G1 Activity, food preparation and clean up; Y92.9 Unspecified place or not applicable; Z88.0 Allergy status to penicillin; F41.9 Anxiety disorder, unspecified
CPT/HCPCS: 99283

== ENCOUNTER → 2023-07-29 | Emergency (ER) | payer BC ==
[~2023-07-29] MED LIST: AZITHROMYCIN 250 MG TAB ONE
[2023-07-29 08:33] LABS: SARS-CoV-2 Antigen Rapid Res Negative (Negative)
--- NOTE | 2023-07-29 09:03 | EDPHYS ---
Physician Documentation [facility] Name: Gali Ennis Age: 38 yrs Sex: Female : 1985 Arrival Date: 07/29/2023 Time: 07:23 Bed 12 Private MD: ED Physician Cole Nicholson HPI: 07/29 08:23 This 38 yrs old Female presents to ER via Ambulatory with complaints of Flu elina Symptoms. 08:23 URI, COUGH AND CONGESTION, SORE THROAT, FEVER X 2 DAYS. The patient or guardian reports elina airway noise, cough. Onset: The symptoms/episode began/occurred 2 day(s) ago. Severity of symptoms: At their worst the symptoms were mild, in the emergency department the symptoms are unchanged. Modifying factors: The symptoms are alleviated by nothing, the symptoms are aggravated by nothing. Associated signs and symptoms: The patient has no apparent associated signs or symptoms. Severity of symptoms: At their worst the symptoms were mild in the emergency department the symptoms are unchanged. The patient has not experienced similar symptoms in the past. 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 Flu vaccine is not up to date. - Social history:: Smoking status: Patient denies any tobacco usage or history of. ROS: 08:42 Constitutional: Negative for fever, chills, and weight loss, Eyes: Negative for injury, elina pain, redness, and discharge, Neck: Negative for injury, pain, and swelling, Cardiovascular: Negative for chest pain, palpitations, and edema, Abdomen/GI: Negative for abdominal pain, nausea, vomiting, diarrhea, and constipation, Back: Negative for injury and pain, : Negative for injury, bleeding, discharge, and swelling, MS/Extremity: Negative for injury and deformity, Skin: Negative for injury, rash, and discoloration, Neuro: Negative for headache, weakness, numbness, tingling, and seizure, Psych: Negative for depression, anxiety, suicide ideation, homicidal ideation, and hallucinations, Allergy/Immunology: Negative for hives, rash, and allergies, Endocrine: Negative for neck swelling, polydipsia, polyuria, polyphagia, and marked weight changes, Hematologic/Lymphatic: Negative for swollen nodes, abnormal bleeding, and unusual bruising, 08:42 Respiratory: Positive for cough, "sounds productive", Exam: 08:42 Constitutional: This is a well developed, well nourished patient who is awake, alert, elina and in no acute distress. Head/Face: Normocephalic, atraumatic. Eyes: Pupils equal round and reactive to light, extra-ocular motions intact. Lids and lashes normal. Conjunctiva and sclera are non-icteric and not injected. Cornea within normal limits. Periorbital areas with no swelling, redness, or edema. ENT: Nares patent. No nasal discharge, no septal abnormalities noted. Tympanic membranes are normal and external auditory canals are clear. Oropharynx with no redness, swelling, or masses, exudates, or evidence of obstruction, uvula midline. Mucous membranes moist. Neck: Trachea midline, no thyromegaly or masses palpated, and no cervical lymphadenopathy. Supple, full range of motion without nuchal rigidity, or vertebral point tenderness. No Meningismus. Chest/axilla: Normal chest wall appearance and motion. Nontender with no deformity. No lesions are appreciated. Cardiovascular: Regular rate and rhythm with a normal S1 and S2. No gallops, murmurs, or rubs. Normal PMI, no JVD. No pulse deficits. Abdomen/GI: Soft, non-tender, with normal bowel sounds. No distension or tympany. No guarding or rebound. No evidence of tenderness throughout. Back: No spinal tenderness. No costovertebral tenderness. Full range of motion. Skin: Warm, dry with normal turgor. Normal color with no rashes, no lesions, and no evidence of cellulitis. MS/ Extremity: Pulses equal, no cyanosis. Neurovascular intact. Full, normal range of motion. Neuro: Awake and alert, GCS 15, oriented to person, place, time, and situation. Cranial nerves II-XII grossly intact. Motor strength 5/5 in all extremities. Sensory grossly intact. Cerebellar exam normal. Normal gait. Psych: Awake, alert, with orientation to person, place and time. Behavior, mood, and affect are within normal limits. 08:42 Respiratory: mild respiratory distress is noted, Respirations: normal, no acute changes, Breath sounds: are clear throughout, no bronchial sounds, no decreased breath sounds, no rales, rhonchi, no stridor, no wheezing, Vital Signs: 07:31 BP 108 / 77; Pulse 74; Resp 17; Temp 98.1; Pulse Ox 100% ; Weight 104.33 kg; Height 5 ap3 ft. 4 in. ; 09:15 BP 105 / 68; Pulse 72; Resp 19; Pulse Ox 99% ; [id number] 07:31 Body Mass Index 39.48 (104.33 kg, 162.56 cm) ap3 MDM: 07:35 Patient medically screened. elina 07:35 Patient medically screened. elina 09:08 Differential diagnosis: viral Infection, bacterial infection, URI, bronchitis, elina pneumonia UTI. Differential Diagnosis altered mental status, Obstructed Airway Bronchitis Influenza Upper Respiratory Infection Sinusitis Pharyngitis. Data reviewed: vital signs, nurses notes, lab test result(s). Consideration of Admission/Observation Escalation of care including admission/observation considered. I considered the following discharge prescriptions or medication management in the emergency department Medications were administered in the Emergency Department. See MAR. Test considered but Not performed: EKG: NO EKG. Care significantly affected by the following chronic conditions: ANXIETY. 07/29 07:34 Order name: Flu ap3 07/29 07:34 Order name: SARS RAPID ap3 Administered Medications: 08:27 Drug: AZITHromycin PO 500 mg PO once Route: PO; ap3 Disposition Summary: 07/29/23 09:02 Discharge Ordered Notes: Location: Home [facility] Problem: new elina Symptoms: have improved elina Condition: Stable elina Diagnosis - Acute upper respiratory infection, unspecified elina - Fever, unspecified elina - Cough elina Followup: elina - With: Private Physician - When: 2 - 3 days - Reason: Recheck today's complaints, Continuance of care, Re-evaluation by your physician Discharge Instructions: - Discharge Summary Sheet elina - Fever, Adult elina - Upper Respiratory Infection, Adult elina - Cool Mist Vaporizer elina - Upper Respiratory Infection, Adult, [id number] elina - Cough, Adult, Vmev-[id number] elina - Viral Respiratory Infection, Bgan-Sk-Rdke elina - Cough, Adult elina Forms: - Medication Reconciliation Form elina - Thank You Letter elina - Antibiotic Education elina - Prescription Opioid Use elina - Patient Portal Instructions elina - Leadership Thank You Letter elina - Work release form [email or web address] Prescriptions: - Tessalon Perles 100 mg Oral capsule - take 2 capsule ORAL route every 8 hours As needed; 30 capsule; Refills: 0, elina Product Selection Permitted - Zithromax Z-Perico 250 mg Oral tablet - take 1 tablet ORAL route as directed for 5 days Day 1 - take two (2) tablets elina one time. Day 2, 3, 4 , 5 take one (1) tablet once daily.; 6 tablet; Refills: 0, Product Selection Permitted - Medrol (Perico) 4 mg Oral Tablets, Dose Pack - take 1 tablet ORAL route as directed - follow package instructions; 1 packet; elina Refills: 0, Product Selection Permitted - Guaifenesin AC 10-100 mg/5 mL Oral liquid - take 7.5 milliliter ORAL route every 6 hours As needed; 240 milliliter; elina Refills: 0, Product Selection Permitted Signatures: Dispatcher [employer] Cole Mtz MD MD cha Prokisch, Amanda, RN RN ap3
--- NOTE | 2023-07-29 09:03 | ER ---
Nurse's Notes [facility] Name: Gali Ennis Age: 38 yrs Sex: Female : 1985 Arrival Date: 07/29/2023 Time: 07: Bed 12 Private MD: Diagnosis: Acute upper respiratory infection, unspecified;Fever, unspecified;Cough Presentation: 07/29 07:31 Chief complaint: Patient states: she started having cold and flu symptoms 07/27/23. ap3 patient reports cough, congestion and body aches. Coronavirus screen: Client presents with at least one sign or symptom that may indicate coronavirus-19. Ebola Screen: No symptoms or risks identified at this time. Initial Sepsis Screen: Does the patient meet any 2 criteria? No. Patient's initial sepsis screen is negative. Does the patient have a suspected source of infection? No. Patient's initial sepsis screen is negative. Risk Assessment: Do you want to hurt yourself or someone else? Patient reports no desire to harm self or others. Onset of symptoms was July 27, 2023. 07:31 Method Of Arrival: Ambulatory ap3 07:31 Acuity: OLVIN 4 ap3 Triage Assessment: 07:33 General: Appears ill, Behavior is calm, cooperative, appropriate for age, Reports ap3 chills for fever for feeling ill for fatigue for. Pain: Denies pain. Neuro: Level of Consciousness is awake, alert, obeys commands, Oriented to person, place, time, situation. Cardiovascular: Patient's skin is warm and dry. Respiratory: Reports cough that is Airway is patent Respiratory effort is even, unlabored, Respiratory pattern is regular, symmetrical. 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 Flu vaccine is not up to date. - Social history:: Smoking status: Patient denies any tobacco usage or history of. Screenin:33 [facility] ED Fall Risk Assessment (Adult) History of falling in the last 3 months, ap3 including since admission No falls in past 3 months (0 pts). Abuse screen: Denies threats or abuse. Nutritional screening: No deficits noted. Tuberculosis screening: No symptoms or risk factors identified. Vital Signs: 07:31 BP 108 / 77; Pulse 74; Resp 17; Temp 98.1; Pulse Ox 100% ; Weight 104.33 kg; Height 5 ap3 ft. 4 in. ; 09:15 BP 105 / 68; Pulse 72; Resp 19; Pulse Ox 99% ; jj7 07:31 Body Mass Index 39.48 (104.33 kg, 162.56 cm) ap3 ED Course: 07:27 Patient arrived in ED. im 07:32 Triage completed. ap3 07:33 Arm band placed on left wrist. ap3 07:34 Patient has correct armband on for positive identification. Bed in low position. Call ap3 light in reach. Pulse ox on. NIBP on. 07:34 No provider procedures requiring assistance completed. ap3 07:35 Cole Nicholson MD is Attending Physician. elina 07:47 SARS RAPID Sent. ds4 07:47 Flu Sent. ds4 09:15 Patient did not have IV access during this emergency room visit. jj7 Administered Medications: 08:27 Drug: AZITHromycin PO 500 mg PO once Route: PO; ap3 Medication: 09:15 VIS not applicable for this client. jj7 Outcome: 09:02 Discharge ordered by . elina 09:15 Discharged to home ambulatory, valente 09:15 Condition: good 09:15 Discharge instructions given to patient, Instructed on discharge instructions, medication usage, Demonstrated understanding of instructions, medications, Prescriptions given X 4, 09:31 Patient left the ED. jj7 Signatures: Cole Nicholson MD MD cha Swanson, Donovan ds4 Hazel Oneal RN RN ap3 Debora Rebollar RN RN jj7 Kanwal Manjarrez
[2023-07-29 09:42] VITALS: BP 105/68; TEMP 98.1; O2SAT 99
== END ==
LOC: ER 07:23
DX: J06.9 Acute upper respiratory infection, unspecified (principal); Z11.52 Encounter for screening for COVID-19; Z88.0 Allergy status to penicillin
CPT/HCPCS: 36415; 87804; 87811; 99284

== ENCOUNTER 2025-05-08 09:55 | Inpatient (IN) | payer BC ==
[2025-05-08] MEDS ORDERED: ONDANSETRON 4 MG/2 ML VIAL ONE (10:45)
[2025-05-08] MEDS ORDERED: MORPHINE 4 MG/ML SYR ONE (10:46)
[2025-05-08] MEDS ORDERED: NA CHLORIDE 0.9% 1,000 ML ONE (10:46)
[2025-05-08 11:02] LABS: Absolute Lymphocytes (CBC) 0.6 K/uL (0.7-4.9); Hematocrit 41.9 % (36.0-45.0); Hemoglobin 13.6 g/dL (12.0-15.0); MCH 28.6 pg (27.0-35.0); MCHC 32.5 g/dL (32.0-36.0); MCV 88.2 fL (80-100); MPV 7.7 fL (7.6-11.3); Nucleated RBC Absolute Count 0.0 (0-0); Nucleated Red Blood Cells % 0.0 % (0-0); RBC Red Blood Cell Count 4.75 M/uL (3.86-4.86); White Blood Count 13.90 thou/uL (4.3-10.9)
[2025-05-08 11:12] LABS: ALT/SGPT 19 U/L (13-56); Albumin 3.5 g/dL (3.4-5.0); Albumin/Globulin Ratio 0.9 (1.1-1.8); Alkaline Phosphatase 45 U/L (45-117); Anion Gap 8.9 mEq/L (5.0-15.0); BUN Blood Urea Nitrogen 14 mg/dL (7-18); Globulin 3.7 g/dL (2.3-3.5); Glucose Level 109 mg/dL (74-106); Lipase 24 U/L (13-75); Potassium 3.9 mEq/L (3.5-5.1)
[2025-05-08 11:13] LABS: AST/SGOT < 10 U/L (15-37)
[2025-05-08 12:08] LABS: Blood Morphology Comment NOT SEEN (NOT SEEN); White Blood Cell Scan OK (OK)
--- NOTE | 2025-05-08 12:47 | RAD REPORT ---
EXAMINATION: CT Abdomen Pelvis W Contrast CLINICAL INDICATION: Female, 40 years old. R/o obstruction;Abd pain TECHNIQUE: CT abdomen and pelvis was performed, after the administration of IV contrast, as per [facility] protocol. Axial, sagittal and coronal reconstructions were obtained. One or more of the following dose reduction techniques were used: Automated exposure control, adjustment of the mA and k V according to patient size, and iterative reconstruction. Unless otherwise specified, incidental findings do not require dedicated imaging follow-up. COMPARISON: 09/01/2018 FINDINGS: LOWER CHEST: The visualized lung bases are clear. LIVER: Normal in size and contour. No focal lesion. BILIARY SYSTEM: No suspicious abnormalities. SPLEEN: Normal size. No focal lesion. PANCREAS: No mass, ductal dilation, or kai-pancreatic fluid. ADRENALS: Normal; no mass. KIDNEYS: Normal size and contour. No hydronephrosis. URINARY BLADDER: Compressed limiting evaluation. GASTROINTESTINAL TRACT: Distended segments of proximal small bowel in the left upper abdomen. Recanal ization within the most distal segment. Relatively abrupt transition to nondistended small bowel most apparent on coronal image 31 series 202. Mild wall enhancement of the subsequence decompressed s mall bowel, could suggest an element of fibrosis. Mild free fluid in the pelvis. No evidence of free air, or fluid collections. APPENDIX: Normal appendix. LYMPH NODES: No lymphadenopathy. MUSCULOSKELETAL: No acute or suspicious osseous abnormality. ADDITIONAL FINDINGS: Fundal heterogeneously enhancing 4.8 x 3.2 cm uterine fibroid. Sequelae of ventr al hernia mesh repair. Small umbilical hernia containing fat. IMPRESSION: Dilated upper left hemiabdomen small bowel loops with relatively abrupt transition to nondistended sm all bowel with mild wall thickening. The involved segments are similar in location to the finding in 2019. The appearance suggests obstruction possibly due to adhesions versus focal small bowel stric ture given the wall thickening of the decompressed small bowel starting at the point of transition. Mild free ascites. THIS REPORT CONTAINS FINDINGS THAT MAY BE CRITICAL TO PATIENT CARE. The findings were verbally commun icated via telephone to Gael Olson M.D. on 05/08/2025 12:43 PM.
[2025-05-08 13:02] LABS: Urine Microscopic Reflex YN NO UMIC
--- NOTE | 2025-05-08 13:31 | EDPHYS ---
Physician Documentation [facility] Name: Gali Ennis Age: 40 yrs Sex: Female : 1985 Arrival Date: 05/08/2025 Time: 09:55 Bed 16 Private MD: ED Physician Gael Olson HPI: 05/08 10:33 This 40 yrs old Female presents to ER via Ambulatory with complaints of dr5 Vomiting, Constipation, Abdominal Pain. 10:33 The patient presents to the emergency department with nausea, vomiting. Onset: The dr5 symptoms/episode began/occurred yesterday. Patient is a 40-year-old female with history of anxiety and previous bowel obstruction (last obstruction was 6 years ago) coming in with periumbilical abdominal pain that started yesterday. Patient reports that she has had a hernia repair which has caused scar tissue and previous bowel tractions. Patient reports that she took magnesium citrate and had bowel movement this morning. Patient reports generalized abdominal pain with worsening pain in the middle. Patient denies fever, chest pain, shortness of breath, vaginal discharge or bleeding, or dysuria.. Historical: - Allergies: 10:12 PENICILLINS; bp - PMHx: 10:12 Anxiety; bp - PSHx: 10:12 D\T\C; hernia repair; bp - Immunization history:: Adult Immunizations up to date. - Infectious Disease History:: Denies. - Social history:: Smoking status: unknown. ROS: 10:33 Constitutional: as per hpi dr5 Exam: 10:33 Constitutional: This is a well developed, well nourished patient who is awake, alert, dr5 and in no acute distress. Head/Face: Normocephalic, atraumatic. Eyes: Pupils equal round and reactive to light, extra-ocular motions intact. Lids and lashes normal. Conjunctiva and sclera are non-icteric and not injected. Cornea within normal limits. Periorbital areas with no swelling, redness, or edema. Neck: Trachea midline, no thyromegaly or masses palpated, and no cervical lymphadenopathy. Supple, full range of motion without nuchal rigidity, or vertebral point tenderness. No Meningismus. Chest/axilla: Normal chest wall appearance and motion. Nontender with no deformity. No lesions are appreciated. Cardiovascular: Regular rate and rhythm with a normal S1 and S2. Normal PMI, no JVD. No pulse deficits. Respiratory: Lungs have equal breath sounds bilaterally, clear to auscultation. No rales, rhonchi or wheezes noted. No increased work of breathing, no retractions or nasal flaring. Back: No spinal tenderness. No costovertebral tenderness. Full range of motion. Skin: Warm, dry with normal turgor. Normal color with no rashes, no lesions, and no evidence of cellulitis. MS/ Extremity: Pulses equal, no cyanosis. Neurovascular intact. Full, normal range of motion. Neuro: Awake and alert, GCS 15, oriented to person, place, time, and situation. Cranial nerves II-XII grossly intact. Motor strength 5/5 in all extremities. Sensory grossly intact. Cerebellar exam normal. Normal gait. 10:33 Abdomen/GI: Inspection: abdomen appears normal, Bowel sounds: normal, Palpation: mild abdominal tenderness, in the umbilical area and suprapubic area, Vital Signs: 10:11 BP 111 / 67; Pulse 72; Resp 16; Temp 98; Pulse Ox 100% ; bp 11:37 BP 101 / 65; Pulse 68; Resp 16; Pulse Ox 98% on R/A; dd2 12:24 BP 98 / 65; Pulse 58; Resp 18; Pulse Ox 100% ; rg5 13:17 BP 100 / 63; Pulse 66; Resp 18; Pulse Ox 100% ; Pain 0/10; rg5 14:30 BP 95 / 63; Pulse 56; Resp 17; Pulse Ox 100% ; rg5 15:30 BP 100 / 65; Pulse 56; Resp 18; Pulse Ox 100% ; rg5 16:30 BP 98 / 65; Pulse 54; Resp 18; Pulse Ox 100% ; rg5 17:30 BP 99 / 63; Pulse 57; Resp 18; Pulse Ox 100% ; rg5 13:17 Pain Scale: Adult rg5 [place] Coma Score: 11:04 Eye Response: spontaneous(4). Motor Response: obeys commands(6). Verbal Response: dd2 oriented(5). Total: 15. MDM: 10:00 Medical Screening Exam initiated dr5 13:30 Data reviewed: vital signs, nurses notes, lab test result(s), amylase and lipase, CBC, dr5 white blood cell count, hemoglobin, hematocrit, platelets, electrolytes, sodium, potassium, chloride, serum bicarbonate, BUN, creatinine, serum glucose, radiologic studies, CT scan. Consideration of Admission/Observation Patient was admitted/placed on observation. Management of patient was discussed with the following: Hospitalist: Dr. Johns. Replenishment Associate: Dr. Trevino. I considered the following discharge prescriptions or medication management in the emergency department I discussed and recommended Over The Counter medications, Medications were administered in the Emergency Department. See MAR. Care significantly affected by the following chronic conditions: Anxiety, previous small bowel obstructions. Care significantly affected by the following Social Determinants of Health: Poor access to healthcare and/or lack of insurance, Poor access to transportation, Problems related to employment. Counseling: I had a detailed discussion with the patient and/or guardian regarding the historical points, exam findings, and any diagnostic results supporting the discharge/admit diagnosis, the presence of at least one elevated blood pressure reading (>120/80) during this emergency department visit, lab results, radiology results, the need for further work-up and treatment in the hospital. Medication response: Morphine, Zofran, normal saline. Response to treatment: the patient's symptoms have mildly improved after treatment. ED course: Discussed with patient that she needs to be admitted. Dr. Trevino consulted. Educated patient that she is n.p.o. until told otherwise. Patient is agreeable to plan.. 05/08 10:16 Order name: CBC with Diff; Complete Time: 12:18 dr5 05/08 10:16 Order name: CMP; Complete Time: 11:18 dr5 05/08 10:16 Order name: Lipase; Complete Time: 11:18 dr5 05/08 10:16 Order name: UA Rfx Doyle Cult if indicated; Complete Time: 13:12 dr5 05/08 10:16 Order name: Test, Serum; Complete Time: 11:18 dr5 05/08 11:10 Order name: CBC Smear Scan; Complete Time: 12:18 EDMS 05/08 13:47 Order name: CBC with Automated Diff EDMS 05/08 13:47 Order name: CBC with Automated Diff EDMS 05/08 13:47 Order name: CBC with Automated Diff EDMS 05/08 13:47 Order name: CBC with Automated Diff EDMS 05/08 13:47 Order name: CBC with Automated Diff EDMS 05/08 13:47 Order name: Comprehensive Metabolic Panel EDMS 05/08 13:47 Order name: Comprehensive Metabolic Panel EDMS 05/08 13:47 Order name: Comprehensive Metabolic Panel [facility] 05/08 13:47 Order name: Comprehensive Metabolic Panel [facility] 05/08 13:47 Order name: Comprehensive Metabolic Panel [facility] 05/08 10:16 Order name: CT Abd/Pelvis - IV Contrast Only; Complete Time: 13:12 dr5 05/08 13:47 Order name: Abdomen 1 View (KUB) [facility] 05/08 13:47 Order name: Abdomen 1 View (KUB) EDNV 05/08 10:16 Order name: IV Saline Lock; Complete Time: 10:56 dr5 05/08 10:16 Order name: Labs collected and sent; Complete Time: 10:56 dr5 Administered Medications: 10:56 Drug: NS 0.9% IV 1000 ml IV at 1 bolus Per protocol; to be given as a bolus over 60 dd2 minutes Route: IV; Rate: 1 bolus; Site: right antecubital; 12:10 Follow up: IV Status: Completed infusion; IV Intake: 1000ml rg5 10:57 Drug: Ondansetron IVP 4 mg IVP once; over 2 minutes Route: IVP; Site: right antecubital;dd2 12:10 Follow up: Response: No adverse reaction rg5 10:57 Drug: morphine IVP or IV 4 mg IVP once over 4 mins Route: IVP; Infused Over: 4 mins; dd2 Site: right antecubital; 12:10 Follow up: Response: No adverse reaction rg5 Disposition: 18:42 Co-signature as Attending Physician, Gael Olson MD I reviewed the patient's care rn provided by the Advanced Practice Provider and agree with the diagnosis and treatment plan. Disposition Summary: 05/08/25 13:30 Hospitalization Ordered Notes: Hospitalization Status: Inpatient Admission dr5 Provider: Arley Johns dr5 Location: Telemetry/MedSurg (Inpatient) dr5 Condition: Stable dr5 Problem: chronic dr5 Symptoms: have worsened dr5 Bed/Room Type: Standard dr5 Room Assignment: 208(05/08/25 17:27) bc6 Diagnosis - Unspecified intestinal obstruction, unspecified as to partial versus complete dr5 obstruction Forms: - Medication Reconciliation Form dr5 - SBAR form dr5 - Leadership Thank You Letter dr5 Signatures: Dispatcher [employer] [facility] Gael Olson MD MD rn Peltier, Brian, RN RN bp Carowatson, Breana bc6 EASTON SANTANA RN RN dd2 Carlos Lin, COMPRESSOR MECHANIC-C COMPRESSOR MECHANIC-Cdr5 Clive Abdalla RN rg5 Corrections: (The following items were deleted from the chart) 10:16 10:16 CBC+H.LAB.BRZ ordered. EDMS EDMS 10:16 10:16 COMPREHENSIVE METABOLIC PANEL+C.LAB.BRZ ordered. EDMS EDMS 10:16 10:16 LIPASE+C.LAB.BRZ ordered. EDMS EDMS 10:16 10:16 UA Rfx Doyle Cult if indicated+U.LAB.BRZ ordered. EDMS EDMS 10:16 10:16 TEST, SERUM+SC.LAB.BRZ ordered. EDMS EDMS 10:16 10:16 Abdomen Pelvis W Con+CT.RAD.BRZ ordered. EDMS EDMS 17:27 13:30 dr5 bc6
--- NOTE | 2025-05-08 13:31 | ER ---
Nurse's Notes [facility] Name: Gali Ennis Age: 40 yrs Sex: Female : 1985 Arrival Date: 05/08/2025 Time: 09:55 Bed 16 Private MD: Diagnosis: Unspecified intestinal obstruction, unspecified as to partial versus complete obstruction Presentation: 05/08 10:11 Chief complaint: Patient states: SHENG-UMBILICAL PAIN WITH N/V SINCE Y/D. Coronavirus bp screen: At this time, the client does not indicate any symptoms associated with coronavirus-19. Ebola Screen: No symptoms or risks identified at this time. Initial Sepsis Screen: Does the patient meet any 2 criteria? No. Patient's initial sepsis screen is negative. Does the patient have a suspected source of infection? No. Patient's initial sepsis screen is negative. Risk Assessment: Do you want to hurt yourself or someone else? Patient reports no desire to harm self or others. Onset of symptoms was May 07, 2025 at 12:00. 10:11 Method Of Arrival: Ambulatory bp 10:11 Acuity: OLVIN 3 bp Triage Assessment: 10:12 General: Appears uncomfortable, Behavior is cooperative, appropriate for age, anxious. bp Pain: Complains of pain in abdomen. EENT: No deficits noted. Neuro: No deficits noted. Cardiovascular: No deficits noted. Respiratory: No deficits noted. GI: Reports epigastric pain, nausea, vomiting. : No signs and/or symptoms were reported regarding the genitourinary system. Derm: No deficits noted. Musculoskeletal: No deficits noted. Historical: - Allergies: 10:12 PENICILLINS; bp - PMHx: 10:12 Anxiety; bp - PSHx: 10:12 D\T\C; hernia repair; bp - Immunization history:: Adult Immunizations up to date. - Infectious Disease History:: Denies. - Social history:: Smoking status: unknown. Screenin:04 [facility] ED Fall Risk Assessment (Adult) History of falling in the last 3 months, dd2 including since admission No falls in past 3 months (0 pts) Confusion or Disorientation No (0 pts) Intoxicated or Sedated No (0 pts) Impaired Gait No (0 pts) Mobility Assist Device Used No (0 pt) Altered Elimination No (0 pt) Score/Fall Risk Level 0 - 2 = Low Risk Oriented to surroundings, Maintained a safe environment, Educated pt \T\ family on fall prevention, incl call for assistance when getting out of bed, Assessed \T\ reinforced patient's understanding of fall precautions, Hourly rounding (assess needs \T\ fall precautionary measures) done. Abuse screen: Denies threats or abuse. Denies injuries from another. Nutritional screening: No deficits noted. Tuberculosis screening: No symptoms or risk factors identified. Assessment: 11:04 General: Appears in no apparent distress. uncomfortable, Behavior is calm, cooperative, dd2 appropriate for age. Pain: Complains of pain in suprapubic area and umbilical area. Neuro: No deficits noted. Cardiovascular: No deficits noted. Respiratory: No deficits noted. Airway is patent Respiratory effort is even, unlabored, Respiratory pattern is regular, symmetrical. GI: Abdomen is non-distended, Bowel sounds present X 4 quads. Abd is soft X 4 quads Abdomen is tender to palpation in suprapubic area and umbilical area Reports cramping, nausea, vomiting. : No deficits noted. No signs and/or symptoms were reported regarding the genitourinary system. EENT: No deficits noted. No signs and/or symptoms were reported regarding the EENT system. Derm: No deficits noted. No signs and/or symptoms reported regarding the dermatologic system. Musculoskeletal: No deficits noted. No signs and/or symptoms reported regarding the musculoskeletal system. Circulation, motion, and sensation intact. Range of motion: intact in all extremities. 12:00 Reassessment: Patient and/or family updated on plan of care and expected duration. Pain rg5 level reassessed. Patient is alert, oriented x 3, equal unlabored respirations, skin warm/dry/pink. Patient states symptoms have improved. 13:18 Reassessment: Patient and/or family updated on plan of care and expected duration. Pain rg5 level reassessed. Patient is alert, oriented x 3, equal unlabored respirations, skin warm/dry/pink. Patient states feeling better. Vital Signs: 10:11 BP 111 / 67; Pulse 72; Resp 16; Temp 98; Pulse Ox 100% ; bp 11:37 BP 101 / 65; Pulse 68; Resp 16; Pulse Ox 98% on R/A; dd2 12:24 BP 98 / 65; Pulse 58; Resp 18; Pulse Ox 100% ; rg5 13:17 BP 100 / 63; Pulse 66; Resp 18; Pulse Ox 100% ; Pain 0/10; rg5 14:30 BP 95 / 63; Pulse 56; Resp 17; Pulse Ox 100% ; rg5 15:30 BP 100 / 65; Pulse 56; Resp 18; Pulse Ox 100% ; rg5 16:30 BP 98 / 65; Pulse 54; Resp 18; Pulse Ox 100% ; rg5 17:30 BP 99 / 63; Pulse 57; Resp 18; Pulse Ox 100% ; rg5 13:17 Pain Scale: Adult rg5 [place] Coma Score: 11:04 Eye Response: spontaneous(4). Motor Response: obeys commands(6). Verbal Response: dd2 oriented(5). Total: 15. ED Course: 09:59 Patient arrived in ED. im 10:00 Carlos Lin FNP-C is PHCP. dr5 10:00 Gael Olson MD is Attending Physician. dr5 10:12 Triage completed. bp 10:12 Arm band placed on. bp 10:57 Test, Serum Sent. ty 10:57 CBC with Diff Sent. ty 10:57 CMP Sent. ty 10:57 Lipase Sent. ty 10:57 Initial lab(s) drawn, by hi, sent to lab. Inserted saline lock: 18 gauge in right ty antecubital area, using aseptic technique. Blood collected. Flushed with 10 mL NS. 11:04 Patient has correct armband on for positive identification. Bed in low position. Call dd2 light in reach. Side rails up X 1. Client placed on continuous cardiac and pulse oximetry monitoring. NIBP monitoring applied. Door closed. Noise minimized. Warm blanket given. Pillow given. Verbal reassurance given. 11:04 No provider procedures requiring assistance completed. Patient maintains SpO2 dd2 saturation greater than 95% on room air. 11:32 CT Abd/Pelvis - IV Contrast Only In Process Unspecified. EDMS 12:24 Clive Abdalla, CHANDNI is Primary Nurse. rg5 13:29 Arley Johns is Hospitalizing Provider. dr5 17:46 Patient admitted, IV remains in place. intact, No redness/swelling at site. rg5 Administered Medications: 10:56 Drug: NS 0.9% IV 1000 ml IV at 1 bolus Per protocol; to be given as a bolus over 60 dd2 minutes Route: IV; Rate: 1 bolus; Site: right antecubital; 12:10 Follow up: IV Status: Completed infusion; IV Intake: 1000ml rg5 10:57 Drug: Ondansetron IVP 4 mg IVP once; over 2 minutes Route: IVP; Site: right antecubital;dd2 12:10 Follow up: Response: No adverse reaction rg5 10:57 Drug: morphine IVP or IV 4 mg IVP once over 4 mins Route: IVP; Infused Over: 4 mins; dd2 Site: right antecubital; 12:10 Follow up: Response: No adverse reaction rg5 Medication: 11:04 VIS not applicable for this client. dd2 Intake: 12:10 IV: 1000ml; Total: 1000ml. rg5 Outcome: 13:30 Decision to Hospitalize by Provider. dr5 17:46 Condition: stable rg5 17:46 Admitted to Med/surg accompanied by tech, via wheelchair, rg5 17:46 Instructed on the need for admit, 17:46 Patient left the ED. rg5 Signatures: Dispatcher [employer] EDIsrrael Geiger, RN RN Kanwal Moore Tylor ty Gallardo, Rommel, RN RN rg5 EASTON SANTANA RN RN dd2 Carlos Lin, JULIA LYMAN-[facility]
[2025-05-08] MEDS ORDERED: MORPHINE 2 MG/ML SYR IV PRN (13:43)
--- NOTE | 2025-05-08 14:18 | P.HP ---
Certification for Inpatient Patient admitted to: Inpatient With expected LOS: >2 Midnights Patient will require the following post-hospital care: None Practitioner: I am a practitioner with admitting privileges, knowledge of patient current condition, hospital course, and medical plan of care. Services: Services provided to patient in accordance with Admission requirements found in Title 42 Section 412.3 of the Code of Federal Regulations Patient History Date of Service: 05/08/25 Reason for admission: SBO History of Present Illness: 40-year-old female with history of anxiety/depression with previous hernia repair and 2 previous bowel obstructions presents to the emergency department chief complaint of abdominal pain and vomiting. She reports that she began having abdominal pain yesterday, had a normal bowel movement earlier this morning around 9 AM but has been having vomiting since last night around 5 times. Patient reports her last bowel obstruction was in 2019, she has not required surgical intervention for bowel obstructions in the past. Patient was evaluated in the emergency department and her labs were significant for a white blood cell 13.9. CT of the abdomen pelvis was performed with IV contrast which showed dilated upper left Dov abdominal small bowel loops with relatively abrupt transition to nondistended small bowel with mild wall thickening. The involved segments are similar in location to the finding in 2019. The appearance suggest obstruction possibly due to adhesions versus focal small bowel stricture given the wall thickening and decompressed bowel starting at the point of the transition with mild free ascites. ED staff discussed the case with general surgery who will consult, patient be admitted to the hospital service for further management of suspected small bowel obstruction. Allergies Penicillins Allergy (Unknown, Verified 09/11/11 06:11) Hives Home Medications: Buspirone HCl 5 mg PO DAILY 09/01/18 Montelukast [Singulair*] 5 mg PO DAILY 09/01/18 - Past Medical/Surgical History Diabetic: No -: Depression -: Chronic sinusitis -: Tobacco use -: Hernia repair -: D/C Psychosocial/ Personal History: Patient is . She has 3 children. She works at the [employer]. - Social History Alcohol use: Yes CD- Drugs: No Caffeine use: Yes Place of Residence: Home Review of Systems 10-point ROS is otherwise unremarkable Gastrointestinal: Nausea, Vomiting, Abdominal Pain Physical Examination - Physical Exam General: Alert, In no apparent distress, Oriented x3 HEENT: Atraumatic, PERRLA, EOMI Neck: Supple, 2+ carotid pulse no bruit, No LAD Respiratory: Clear to auscultation bilaterally, Normal air movement Cardiovascular: Regular rate/rhythm, Normal S1 S2 Gastrointestinal: Normal bowel sounds, Tenderness (Mild generalized abdominal tenderness) Musculoskeletal: No tenderness Integumentary: No rashes Neurological: Normal gait, Normal speech, Normal strength at 5/5 x4 extr, Normal affect - Studies Laboratory Data (last 24 hrs) 05/08/25 05/08/25 10:39 10:39 WBC 13.90 H Hgb 13.6 Hct 41.9 Plt Count 412 H Sodium 139 Potassium 3.9 BUN 14 Creatinine 1.04 H Glucose 109 H Total Bilirubin 0.7 AST < 10 L ALT 19 Alkaline Phosphatase 45 Lipase 24 Assessment and Plan - Plan Assessment: Small bowel obstruction Anxiety/depression Plan: Small bowel obstruction N.p.o., IVF Empiric antibiotics, as needed pain medications and antiemetics General Surgery consultation, KUB in the morning Consider NGT if there is worsening abdominal pain distention or vomiting Last bowel movement a.m. 05/08 Anxiety/depression Hold oral medications at this time, resume when appropriate DVT PPX: SCD Code status:full code Discharge Plan: Home Plan to discharge in: 72 Hours - Advance Directives Does patient have a Living Will: No Does patient have a Durable POA for Healthcare: No - Code Status/Comfort Care Code Status Assessed: Yes (Full code) Critical Care: No Time Spent Managing Pts Care (In Minutes): 70
[2025-05-08 17:53] VITALS: O2SAT 100
[2025-05-08 18:02] VITALS: BMI 36.7
[2025-05-08] MEDS: METRONIDAZOLE 500mg IVPB 500 MG/100 ML BAG IV SCH (18:04)
[2025-05-08] MEDS: D5 0.45 NS 1,000 ML IV SCH (18:04)
--- NOTE | 2025-05-08 19:16 | CON ---
Date of Consultation: 05/08/2025 Diagnosis: Small bowel obstruction. History Of Present Illness: This is a case of a 40-year-old patient, who comes to us with bowel obst ruction. It is not her first time. Last time, she was seen by Dr. Davis after she ate steak, georgi coli, and , but this time she says it was done by fiber, in that case ate apples. She know s she is out to take care of her intestines. She has multiple surgeries in the past, but she states she is little bit more extensive at this time and then this happened. There is no dysuria, hematuria , hematochezia, melena. There is no recent traveling out of the country. No family member sick at h ome. Last time, she had this bowel obstruction which is in the same area, relieved on its own and th at is her plan this time too. Allergies: PENICILLIN. Past Medical History: Anxiety. Past Surgical History: Hernia repair. She does not know the details of that. Family History: Unremarkable. Social History: She does not smoke. She does drink alcohol. Review of Systems: See above. Ten point otherwise unremarkable. Physical Examination: Vital Signs: Reviewed. General: The patient is awake, alert. HEENT: Pupils are equal and reactive. Anicteric. Neck: Supple. Chest: Clear. Heart: S1, S2. Abdomen: Soft and depressible. Softly distended. No guarding or rebound. She says she feels a lot better today. Breasts: Deferred. Pelvic: Deferred. Rectal: Deferred. Extremities: Good capillary refill. Laboratory Data: Blood work shows WBC count of 13.9, hemoglobin of 13.6, potassium 3.9, glucose 109. CAT scan of the abdomen and pelvis, distended segment of proximal small bowel in the left upper abd omen, recanalization within the most distal segment. There is relatively abrupt transition to nondis tended small bowel. These findings are similar in 2019 and this is by radiologist. Assessment: This is a 40-year-old patient with bowel obstruction. She already feels better. She be lieves she knows to call. She want to continue conservative treatment. I agree with her and once cl inically she does not get worse, we will continue observation, bowel rest, ambulation. Advance diet slowly as she recover. 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 NEVILLE/MODL Voice ID: [id number] Report ID: [id number]
[2025-05-08] MEDS: CIPROFLOXACIN 400mg IV 400 MG/200 ML BAG IV SCH (20:09)
[2025-05-08] MEDS: ONDANSETRON 4 MG/2 ML VIAL IV PRN (20:16)
[2025-05-09] MEDS ORDERED: ACETAMIN/CAFFEINE/BUTALB TAB PO PRN (00:49)
[2025-05-09] MEDS ORDERED: ACETAMINOPHEN 325 MG TABLET PO PRN (00:49)
[2025-05-09 05:03] LABS: Absolute Lymphocytes (CBC) 1.0 K/uL (0.7-4.9); Hematocrit 35.8 % (36.0-45.0); Hemoglobin 12.0 g/dL (12.0-15.0); MCH 29.5 pg (27.0-35.0); MCHC 33.5 g/dL (32.0-36.0); MCV 88.0 fL (80-100); MPV 7.7 fL (7.6-11.3); Nucleated RBC Absolute Count 0.0 (0-0); Nucleated Red Blood Cells % 0.0 % (0-0); RBC Red Blood Cell Count 4.07 M/uL (3.86-4.86); White Blood Count 6.50 thou/uL (4.3-10.9)
[2025-05-09 05:20] LABS: Albumin 3.0 g/dL (3.4-5.0); Albumin/Globulin Ratio 1.0 (1.1-1.8); Alkaline Phosphatase 35 U/L (45-117); Anion Gap 7.4 mEq/L (5.0-15.0); BUN Blood Urea Nitrogen 13 mg/dL (7-18); Globulin 3.0 g/dL (2.3-3.5); Glucose Level 114 mg/dL (74-106); Potassium 3.4 mEq/L (3.5-5.1)
[2025-05-09 05:21] LABS: ALT/SGPT < 14 U/L (13-56); AST/SGOT < 10 U/L (15-37)
--- NOTE | 2025-05-09 08:52 | RAD REPORT ---
EXAM: XR Abdomen 1 View (KUB) HISTORY: [facility] COMPARISON: 09/02/2018 FINDINGS: Single view of the abdomen shows a nonspecific, nonobstructive bowel gas pattern. Multiple pelvic phleboliths. Ventral hernia repair mesh stent is present. The bones are unremarkable. IMPRESSION: Nonobstructive bowel gas pattern.
[2025-05-09] MEDS: POTASSIUM CL SA 10 MEQ TAB PO ONE (09:40)
[2025-05-09] MEDS ORDERED: POTASSIUM CL 40 MEQ in NA CHLORIDE 0.9% 500 ML IV SCH (10:00)
--- NOTE | 2025-05-09 14:48 | P.DS ---
Admission Date: 05/08/25 Discharge Date: 05/09/25 Disposition: ROUTINE DISCHARGE Discharge Condition: FAIR Reason for Admission: SBO Brief History of Present Illness: 40-year-old female with history of anxiety/depression with previous hernia repair and 2 previous bowel obstructions presented to the emergency department chief complaint of abdominal pain and vomiting. Last bowel movement was on the morning before the ER presentation Patient reported history of bowel obstruction in 2019, she has not required surgical intervention for bowel obstructions in the past. Patient was evaluated in the emergency department and her labs were significant for a white blood cell 13.9. CT of the abdomen pelvis was performed with IV contrast which showed dilated upper left gavi abdominal small bowel loops with relatively abrupt transition to nondistended small bowel with mild wall thickening. The involved segments are similar in location to the finding in 2019. The appearance suggestedd obstruction possibly due to adhesions versus focal small bowel stricture given the wall thickening and decompressed bowel starting at the point of the transition with mild free ascites. ED staff discussed the case with general surgery Dr. Trevino and patient hospitalized for further management. Hospital Course: Diagnosis Small bowel obstruction Anxiety and depression. Patient treated with supportive measures including IV hydration and IV antibiotics. She did not vomit and did not require NG tube placement. Patient reports having flatus. Repeat KUB the following morning showed normal bowel gas pattern indicating resolution of the obstruction. Patient seen and evaluated by general surgery, she was started on clear liquid diet and advance to full liquid diet which she tolerated without pain. Bowel obstruction resolved. Patient deemed stable for discharge. Vital Signs/Physical Exam: Temp Pulse Resp BP Pulse Ox 98.2 F 65 17 103/60 99 05/09/25 12:00 05/09/25 12:00 05/09/25 12:00 05/09/25 12:00 05/09/25 12:00 General: Alert, In no apparent distress, Oriented x3 HEENT: Mucous membr. moist/pink, Sclerae nonicteric Neck: Supple, JVD not distended Respiratory: Clear to auscultation bilaterally, Normal air movement Cardiovascular: No edema, Regular rate/rhythm, Normal S1 S2 Gastrointestinal: Normal bowel sounds, Soft and benign, Non-distended, No tenderness Musculoskeletal: No swelling, No tenderness Integumentary: No rashes, No cyanosis Neurological: Normal strength at 5/5 x4 extr Laboratory Data at Discharge: WBC 6.50 thou/uL (4.3-10.9) 05/09/25 04:47 Hgb 12.0 g/dL (12.0-15.0) D 05/09/25 04:47 Hct 35.8 % (36.0-45.0) L 05/09/25 04:47 Plt Count 312 thou/uL (152-406) 05/09/25 04:47 Sodium 139 mEq/L (136-145) 05/09/25 04:47 Potassium 3.4 mEq/L (3.5-5.1) L 05/09/25 04:47 BUN 13 mg/dL (7-18) 05/09/25 04:47 Creatinine 0.91 mg/dL (0.55-1.02) 05/09/25 04:47 Glucose 114 mg/dL (74-106) H 05/09/25 04:47 Total Bilirubin 0.6 mg/dL (0.2-1.0) 05/09/25 04:47 AST < 10 U/L (15-37) L 05/09/25 04:47 ALT < 14 U/L (13-56) 05/09/25 04:47 Alkaline Phosphatase 35 U/L (45-117) L D 05/09/25 04:47 Lipase 24 U/L (13-75) 05/08/25 10:39 Home Medications: Buspirone HCl 5 mg PO DAILY 09/01/18 Montelukast [Singulair*] 5 mg PO DAILY 09/01/18 Escitalopram Oxalate [Lexapro] 5 mg PO DAILY 05/08/25 Diet: Regular Activity: Ad mya Followup: Rocio Galdamez DO [Primary Care Provider] - Time spent managing pt's care (in minutes): 31
[2025-05-09 16:10] VITALS: BP 101/58; TEMP 98
== END 2025-05-09 18:37 | disposition home or self-care (01) | DRG 390 ==
LOC: ER 09:55 → ERHOLD 13:43 → 2ND 17:35
PROVIDERS: ADMIT Internal Medicine; ATTEND Internal Medicine
DX: K56.609 Unspecified intestinal obstruction, unspecified as to partial versus complete obstruction (principal); F41.9 Anxiety disorder, unspecified; F32.A Depression, unspecified; Z88.0 Allergy status to penicillin; Z56.0 Unemployment, unspecified; Z59.82 Transportation insecurity; Z59.71 Insufficient health insurance coverage; Z79.899 Other long term (current) drug therapy
CPT/HCPCS: 36415; 74018; 74177; 80053; 81003; 83690; 84703; 85025; 96361; 96374; 96375; 99285; J0744; J2405; J7030; J7799; Q9967